=== PATIENT | female | born 1995 | race Caucasian/White ===

== ENCOUNTER → 2023-08-22 15:06 | Outpatient (BNVA) | payer BC, SELFPAY | PROVIDERS: Referring Provider Nurse Practitioner; Visit Provider Nurse Practitioner Women's Health | DX: Z30.9 Encounter for contraceptive management, unspecified (principal) | CPT/HCPCS: 81025 ==

== ENCOUNTER → 2024-06-02 15:44 | Outpatient (BNVA) | payer BC, SELFPAY | PROVIDERS: Visit Provider Nurse Practitioner Women's Health | DX: Z12.4 Encounter for screening for malignant neoplasm of cervix (principal) | CPT/HCPCS: 87624 ==

== ENCOUNTER → 2024-07-09 15:09 | Outpatient (BNVA) | payer BC, SELFPAY | PROVIDERS: Visit Provider Nurse Practitioner Women's Health | DX: N94.10 Unspecified dyspareunia (principal); Z98.890 Other specified postprocedural states; Z87.42 Personal history of other diseases of the female genital tract | CPT/HCPCS: 76830 ==

== ENCOUNTER 2025-01-28 15:42 | Outpatient (RCR) | payer BC, SELFPAY | END 2025-02-13 23:59 | disposition home or self-care (01) | LOC: SPT 15:42 | PROVIDERS: Visit Provider Obstetrics & Gynecology | DX: N94.10 Unspecified dyspareunia (principal) | CPT/HCPCS: 97110; 97161 ==

== ENCOUNTER 2025-02-14 05:00 | Outpatient (RCR) | payer BC, SELFPAY | END 2025-03-15 23:59 | disposition home or self-care (01) | LOC: SPT 05:00 | PROVIDERS: Visit Provider Obstetrics & Gynecology | DX: N94.10 Unspecified dyspareunia (principal); N39.3 Stress incontinence (female) (male) | CPT/HCPCS: 97110 ==

== ENCOUNTER 2025-03-16 05:00 | Outpatient (RCR) | payer BC, SELFPAY | END 2025-04-15 23:59 | disposition home or self-care (01) | LOC: SPT 05:00 | PROVIDERS: Visit Provider Obstetrics & Gynecology | DX: N94.10 Unspecified dyspareunia (principal); N39.3 Stress incontinence (female) (male) | CPT/HCPCS: 97110 ==

== ENCOUNTER → 2025-05-26 09:41 | Outpatient (BNVA) | payer BC, SELFPAY | PROVIDERS: Visit Provider Family Medicine | DX: Z01.818 Encounter for other preprocedural examination (principal) | CPT/HCPCS: 80053; 85007; 85027 ==

== ENCOUNTER 2025-06-01 09:12 | Inpatient (IN) | payer BC, SELFPAY ==
[2025-06-01] VITALS (16 sets, daily range): BP systolic 93–111; BP diastolic 49–75; PULSE 60–95; RESP 10–21; TEMP 36.2–36.9; O2SAT 93–99; BMI 30.2
--- NOTE | 2025-06-01 05:09 | W.PM.OPSFHP ---
Same Day Surgery H&P Indication for Procedure/HPI DATE OF PROCEDURE: June 01, 2025 CHIEF COMPLAINT/INDICATIONFOR SURGICAL PROCEDURE: painful intercourse PREOP DIAGNOSIS: dyspareunia PLANNED PROCEDURE: Operation Date: 06/01/25 07:00 Proposed Procedures p Laparoscopic Assist Vaginal Hysterectomy 35735 N94.10 R10.2 G89.29 N80.9(Not Applicable) - Low Swenson MD Medications/Allergies* Allergies/Adverse Reactions Allergy/AdvReac Type Severity Reaction Status Date / Time Cephalosporins Allergy Unknown ALGY-Rash Verified 05/26/25 09:31 iodine Allergy Unknown ALGY-Hives Verified 05/26/25 09:31 nickel Allergy Unknown ADR-Itching Verified 05/26/25 09:31 Penicillins Allergy Unknown ALGY-Rash Verified 05/26/25 09:31 Pertinent History/Comorbid Conditions* Family History (Updated 08/22/23 @ 14:19 by Shyla Key CMA) Breast cancer Grandmother Denies family history of Colon cancer Ovarian cancer Thyroid cancer Diabetes Heart disease Hyperlipidemia Hypertension Uterine cancer Stroke Social History Smoking and tobacco/nicotine status: never used tobacco/nicotine Pertinent Exam Findings alert, oriented x 3, clear to auscultation bilaterally and regular rate & rhythm Recommendations Surgery/Procedure today Coding Level of Care Code Acute Code for Chg Fwd
[2025-06-01 06:42] LABS: OR HCG Qualitative Urine Negative (Negative)
--- NOTE | 2025-06-01 06:43 | W.PM.OPSUD ---
Surgery/Procedure H&P Update DATE OF PROCEDURE: June 01, 2025 DATE H&P PERFORMED: 06/01/25 H&P UPDATE INFORMATION: I have reviewed H&P completed within last 30 days, I have examined patient prior to procedure and No changes to prior documentation PREOP DIAGNOSIS: dyspareunia PLANNED PROCEDURE: Operation Date: 06/01/25 07:00 Proposed Procedures p Laparoscopic Assist Vaginal Hysterectomy 25267 N94.10 R10.2 G89.29 N80.9(Not Applicable) - Low Swenson MD
--- NOTE | 2025-06-01 07:13 | ANES.PREANE2 ---
Pre-Anesthetic Assessment Height/Weight: Height 1.52 m Weight 70.307 kg O2 Del Method Room Air 06/01/25 06:12 Preop Diagnosis: dyspareunia Operation Date: 06/01/25 07:00 Proposed Procedures p Laparoscopic Assist Vaginal Hysterectomy 64887 N94.10 R10.2 G89.29 N80.9(Not Applicable) - Low Swenson MD Familial anesthetic complications: None Was Beta Aura taken within 24 hours: N/A Was Clonidine taken within 24 hours: N/A Last intake: Intake Last Liquid Date 05/31/25 Last Liquid Time 20:00 Last Solid Date 05/31/25 Last Solid Time 18:30 Social No alcohol and No tobacco Exam alert, oriented x 3, clear to auscultation bilaterally and regular rate & rhythm Airway Mallampati: Class II Anesthetic Plan ASA status: 1 Anesthesia: General Risk of > 500 ml blood loss (7ml/kg in children): No Medications/Allergies Home Medications ?Medication ?Instructions ?Recorded ?Confirmed ?Last Taken ?Type medroxyprogesterone 150 mg/mL 150 mg IM ONCE #1 mL 06/02/24 05/31/25 03/31/25 Rx intramuscular syringe (Depo-Provera) Allergies Allergy/AdvReac Type Severity Reaction Status Date / Time Cephalosporins Allergy Unknown ALGY-Rash Verified 05/26/25 09:31 iodine Allergy Unknown ALGY-Hives Verified 05/26/25 09:31 nickel Allergy Unknown ADR-Itching Verified 05/26/25 09:31 Penicillins Allergy Unknown ALGY-Rash Verified 05/26/25 09:31 Current Medications Generic Name Dose Route Start Last Admin Trade Name Edu PRN Reason Stop Dose Admin Sodium Chloride 1,000 mls @ 30 mls/hr 06/01/25 06:15 06/01/25 06:43 Sodium Chloride 0.9% IV 06/02/25 06:14 30 mls/hr .Q24H OFE Administration PFSH Anesthesia Family History Grandmother Breast cancer Denies family history of Colon cancer Ovarian cancer Thyroid cancer Diabetes Heart disease Hyperlipidemia Hypertension Uterine cancer Stroke Social History Smoking and tobacco/nicotine status: never used tobacco/nicotine
[2025-06-01] MEDS: metroNIDAZOLE IV 500 MG/100 ML PREMIX 100 MG IV (07:26)
[2025-06-01] MEDS: BUPivacaine 0.5% INJ 30 mL INJECTION (08:21)
[2025-06-01] MEDS: BUPivacaine liposome 13.3 mg/mL SDV 20 mL 266 MG INFILTRATI (08:21)
--- NOTE | 2025-06-01 09:13 | PM.OP2 ---
Brief Operative Note Date of procedure: 06/01/25 Pre-op diagnosis: dysmenorrhea Post-op diagnosis: same Procedure Done: total abdominal hysterectomy Surgeon: Low Swenson Estimated blood loss (mL): 20 Complications: none Post-op Plan: floor
--- NOTE | 2025-06-01 09:19 | SUR.OPER ---
pt arrived to OR with multiple blanchable red areas over bilateral arms and back. Pt stated she has had them for a week. Denied them itching or causing pain. Dr. Swenson made aware, assessed pt and proceeded with surgery.
[2025-06-01] MEDS: fentaNYL 50 mcg/mL INJ 2mL IVP (09:30)
--- NOTE | 2025-06-01 09:50 | ANE.PACU2 ---
Inpatient post-anesthesia follow up: Airway intact: Yes Vital signs: Temperature 97.6 F Pulse Rate 80 Respiratory Rate 17 Blood Pressure 100/63 Pulse Oximetry 97 Oxygen Delivery Me thod Room Air Oxygen Flow Rate Fraction of Inspir ed Oxygen Hydration adequate: Yes Nausea and vomiting: No Pain level: 1 Mental status: Baseline
--- NOTE | 2025-06-01 10:06 | PC.NURSE ---
0958 - accepted into room OB 12 with Savi RN at side - no distress noted to pt upon this nurse exiting care - BP 111/61 - pulse 84 - 02 96% - temp 97.6
[2025-06-01] MEDS: HYDROcodone-acetaminophen 5-325 mg Tablet PO ×2 (10:09→15:46)
--- NOTE | 2025-06-01 10:45 | PM.OP ---
Operative Report Date of procedure: June 01, 2025 Pre-op diagnosis: dyspareunia Post-op diagnosis: same Post-op findings: Normal uterus, tubes, and ovaries several scattered pigmented lesions in the posterior cul-de-sac peritoneum Normal and intact bladder Procedure done: Total abdominal hysterectomy Bilateral salpingectomy biopsy of posterior cul-de-sac lesion Implants: none Specimens removed/disposition: uterus / cervix fallopian tubes posterior cul-de-sac lesion Surgeon: Low Swenson MD Anesthesia: General Estimated blood loss (mL): 20 Complications: none Findings: see above Condition: stable Disposition: PACU Brief History: 30 y.o. with long history of painful intercourse, desires hysterectomy for treatment Procedure: It was originally planned to do laparoscopic hysterectomy. However, the Valerie-II device, an essential component of laparoscopic hysterectomy, was not able to be located prior to surgery. It was discussed with patient and she consented to proceed with abdominal hysterectomy. The patient was taken to the operating room and placed supine on the table. General endotracheal anesthesia was induced. The abdomen was prepped and draped in the usual sterile fashion. A velasco catheter was placed which drained clear urine. A pfannenstiel incision was made and carried down through skin and subcutaneous tissue and fascia. The fascia was sharply incised. The rectus muscles were and the abdomen was entered bluntly in the midline. The pelvic contents were visualized and examined. An Wili-O retractor was placed. The bowels were packed out of the way. The Ligasure device was used throughout for vessel sealing and cutting. The hysterectomy was begun by dividing and ligating the round ligaments bilaterally. The fallopian tubes were removed by clamping and ligating the mesosalpinx on each side. The ovaries were left intact. The vesicouterine peritoneal fold was incised in a transverse curvilinear fashion and sharply dissected downward mobilizing the bladder off the lower uterine segment. The uterine vessels were skeletonized and bilaterally divided and ligated. The procedure was carried down on both sides of the uterus until the cardinal uterosacral ligament was reached. The cervix was then incised. The vaginal cuff was identified and the mucosa was from the cervix. In this fashion, the uterus and tubes were removed leaving the vaginal cuff. The vaginal cuff was identified and the mucosa was sewn with O-Vicryl. There were several scattered small pigmented lesions located superficially on the posterior cul-de-sac peritoneum. One of these lesions was removed using Metzenbaum scissors and sent to pathology. No bleeding was seen. The pelvis was inspected and irrigated. There was no bleeding. The abdominal packs were removed as was the retractor. The fascia was then closed with a continuous stitch of O-Vicryl. The subcutaneous tissue was irrigated and inspected for hemostasis. Exparel 80 cc was given subcutaneously for postoperative pain relief. The skin was then reapproximated using Insorb absorbable subcuticular skin joon. The patient was then placed supine, extubated, and taken to the recovery room. Postoperative condition: stable EBL: 20 cc Complications: none Sponge, needle, instruments counts were correct x two.
[2025-06-01] MEDS: HYDROmorphone 0.5 MG/0.5 ML INJ 0.25 MG IVP ×2 (12:08→17:18)
[2025-06-01] MEDS: ondansetron 2 mg/ML SDV 2 mL 4 MG IVP ×2 (18:02→22:01)
--- NOTE | 2025-06-01 21:30 | PC.NURSE ---
Patient ambulated in halls 2 laps around OB unit with standby assist. Patient tolerated well, returned to room, patient brushed teeth and returned to bed without complaints.
[2025-06-02 03:15] VITALS: BP 99/59; PULSE 76; RESP 16; TEMP 36.9; O2SAT 95
--- OUTSIDE RECORDS SUMMARY | 2025-06-02 05:13 | XMS_ITS | Clinical Summary ---
Author Organization [facility] Address [address] Attn: Epic Prelude ADT REJI OCAMPO [address] Care Team Providers Care Capacity Planning Engineer Name Role Phone Dexter Farley MD Primary Care Provider [phone] Allergies Active Allergy Reactions Criticality Noted Date Comments Amoxicillin Unknown 03/21/2016 Cephalosporins Other (See Comments) Medium 07/31/2023 Childhood allergy Iodine Unknown 03/21/2016 Nickel Rash Low 02/04/2019 Penicillins Unknown 10/18/2017 Medications L-Norgest&E estradiol-E Estrad (Simpesse) 0.15 mg-30 mcg (84)/10 mcg (7) Tablet, Dose Pack, 3 MonthsIndications:E ncounter for prescription of oral contraceptives Take 1 Tablet by mouth daily. 91 Tablet 3 3 Active Active Problems Problem Noted Date Diagnosed Date Pain due to onychomycosis of toenails of both fe et 02/04/2019 Tinea pedis of both feet 02/04/2019 Immunizations Immunization Administration Dates Next Due Skin Test TB 04/26/2016 Family History Medical History Relation Name Comments Unknown Father Unknown Mother Breast Cancer Paternal Grandmother Relation Name Status Comments Father Alive Maternal Grandfather Mother Other Paternal Grandmother Social History Tobacco Use Types Packs/Day Years Used Date Smoking Tobacco: Never Passive Smoke Exposure: Never Smokeless Tobacco: Never Alcohol Use Standard Drinks/Week Comments Yes 0 (1 standard drink = 0.6 oz pur e alcohol) Comments Unknown Sex and Gender Information Value Date Recorded Sex Assigned at Not on file Legal Sex Female 2:44 AM ADJUSTMENT SUPERVISOR Gender Identity Not on file Sexual Orientation Not on file Last Filed Vital Signs Vital Sign Reading Time Taken Comments Blood Pressure 104/60 07/31/2023 9:31 AM ADJUSTMENT SUPERVISOR Pulse 87 07/31/2023 9:31 AM ADJUSTMENT SUPERVISOR Temperature 36.8 C (98.3 F) 07/31/2023 9:31 AM ADJUSTMENT SUPERVISOR Respiratory Rate 18 08/03/2022 3:48 PM ADJUSTMENT SUPERVISOR Oxygen Saturation 99% 07/31/2023 9:31 AM ADJUSTMENT SUPERVISOR Inhaled Oxygen Concentration - - Weight 65 kg (143 lb 6 oz) 07/31/2023 9:31 AM CS T Height 152.4 cm (5') 07/31/2023 9:31 AM ADJUSTMENT SUPERVISOR stat ed Body Mass Index 28 07/31/2023 9:31 AM ADJUSTMENT SUPERVISOR Plan of Treatment Health Maintenance Due Date Last Done Comments HEPATITIS B VACCINES (1 of 3 - 19+ 3-dose series) 02/04/2015 CERVICAL CANCER SCREENING 02/04/2022 PAP SMEAR 02/04/2022 02/04/2019 HPV VACCINES (1 - 3-dose SCDM series) 02/04/2023 HPV/Cotest (21-29) 2024 02/04/2019, 02/04/2019 Preventative Visit- Commercial 09/16/2024 02/04/2019 INFLUENZA VACCINE (#1) 2025 HPV/Cotest (30-65) 02/04/2026 02/04/2019, 02/04/2019 DTAP/TDAP/TD VACCINES (2 - Td or Tdap) 03/21/2031 Procedures Procedure Name Priority Date/Time Associated Diagnosis Comments HPV HIGH RISK DETECTION Routine 02/04/2019 9:21 AM CDT CERV/VAG CYTO SCREEN PAP RLFX HPV Routine 02/04/2019 9:21 AM CDT from Last 3 Months or Most Recently Relevant to Health Maintenance Results * (ABNORMAL) CERV/VAG CYTO SCREEN PAP RLFX HPV (02/04/2019 9:21 AM CDT) CLINICAL INFORMATION Information not provided 02/14/2019 1:18 PM CDT [facility] LAST MENSTRUAL PERIOD INFORMATION NOT PROVIDED 02/14/2019 1:18 PM CDT [facility] PREV PAP: INFORMATION NOT PROVIDED 02/14/2019 1:[address] [facility] PREV BX: INFORMATION NOT PROVIDED 02/14/2019 1:[address] [facility] SOURCE Endocervix 02/14/2019 1:18 PM CDT [facility] ADEQUACY: SEE COMMENT 02/14/2019 1:[address] [facility] Comment: Satisfactory for evaluation. Endocervical/transformation zone component present. Age and/or menstrual status not provided GENERAL CATEGORIZATION: EPITHELIAL CELL ABNORMALITY(A) 02/14/2019 1:[address] [facility] PAP INTERP Atypical Squamous Cells of Undetermined Significance (ASC-US)(A) 02/14/2019 1:[address] [facility] COMMENT SEE COMMENT 02/14/2019 1:18 PM CDT [facility] Comment: This Pap test has been evaluated with computer assisted technology. Suggest clinical correlation and follow-up as clinically appropriate COGENERATION OPERATOR: SEE COMMENT 2018 1:18 PM CDT [facility] Comment: MLO, CT(ASCP) CT screening location: [place] [address] Administration REJI Rodrigez [id number] PATHOLOGIST SEE COMMENT 02/14/2019 1:18 PM CDT [facility] Comment: Jose Savage M.D., Board Certified in Anatomic Pathology and Cytopathology. (electronic signature) EXPLANATORY NOTE SEE COMMENT 019 1:18 PM CDT [facility] Comment: EXPLANATORY NOTE: The Pap is a screening test for cervical cancer. It is not a diagnostic test and is subject to false negative and false positive results. It is most reliable when a satisfactory sample, regularly obtained, is submitted with relevant clinical findings and history, and when the Pap result is evaluated along with historic and current clinical information. Genital SWAB OF ENDOCERVIX / Unknown Collection / Unknown 02/04/2019 9:21 AM CDT 02/06/2019 7:11 AM CDT Narrative [facility] - 02/14/2019 1:18 PM CDT Performing Organization Information: Site ID: Name: [facility] Address: [facility] Administration REJI Akhtar [address] Director: Jesus Joseph Raina Sanches MD PATHOLOGY/CYTOLOGY OR DERABLES Final Result Performing Organization Address [facility] Co de Phone Number [facility] [phone] [facility] RE[facility]ENCE [facility] * HPV HIGH RISK DETECTION (02/04/2019 9:21 AM CDT) HPV E6/E7 Not Detected Not Detected 02/14/2019 1:[address] [facility] Comment: This test was performed using the APTIMA HPV Assay ([employer] This assay detects E6/E7 viral messenger RNA (mRNA) from 14 high-risk HPV types (16,18,31,33,35,39,45,51,52,56,58,59,66,68). The analytical performance characteristics of this assay have been determined by [employer] The modifications have not been cleared or approved by the FDA. This assay has been validated pursuant to the CLIA regulations and is used for clinical purposes. Genital SWAB OF ENDOCERVIX / Unknown Collection / Unknown 02/04/2019 9:21 AM CDT 02/06/2019 7:11 AM CDT Narrative [facility] - 02/14/2019 1:18 PM CDT Performing Organization Information: Site ID: [place] Name: [facility] Address: [address] [place] [id number] Director: Lj Conroy D.O., MPH us Raina Sanches MD PATHOLOGY/CYTOLOGY OR DERABLES Final Result Performing Organization Address City/[facility] Co de Phone Number [facility] [phone] [facility] from Last 3 Months or Most Recently Relevant to Health Maintenance Insurance [id number] [place] [address] [employer] BLUE ACCESS/TRUE [address]UE [address] [place] [address] Care Teams Capacity Planning Engineer Relationship Specialty Start Date End Date Dexter Farley MD [address] [id number] PCP - General Family Practice 08/03/22
[2025-06-02] MEDS: HYDROcodone-acetaminophen 5-325 mg Tablet PO ×2 (05:15→11:39)
[2025-06-02 05:18] LABS: Hematocrit 35.1 % (36-47); Hemoglobin 12.20 g/dL (11.27-16.99); Mean Corpuscular HGB Conc 34.8 g/dL (30-55); Mean Corpuscular Hemoglobin 31.7 pg (27-33); Mean Corpuscular Volume 91.2 fl (85-98); Platelet Count 247 10^3/cmm (157-399); Red Blood Count 3.85 10^6/uL (3.85-5.65); White Blood Count 12.11 10^3/uL (3.29-11.43)
--- NOTE | 2025-06-02 05:20 | PC.NURSE ---
Patient up to bathroom independently; teeth brushed. Cruz catheter removed intact while patient sitting on toilet; peripad and clean underwear applied. Patient ambulated in halls 2 laps around unit without difficulty. Returned to room, to bed without assistance.
[2025-06-02 09:10] VITALS: BP 101/66; PULSE 80; RESP 16; TEMP 36.8; O2SAT 96
[2025-06-02 11:45] VITALS: BP 101/66; PULSE 80; RESP 16; TEMP 36.8; O2SAT 96
--- NOTE | 2025-06-02 14:10 | PM.OBGYPN ---
RECREATION FACILITY ATTENDANT Subjective Subjective: Interval history: c/o moderate incisional pain, relieved with pain medications tolerating PO well voiding, ambulating well Vitals/I&O/Wt Last Vital Signs Temp 98.3 F 06/02/25 11:45 Pulse 80 06/02/25 11:45 Resp 16 06/02/25 11:45 BP 101/66 06/02/25 11:45 Pulse Ox 96 06/02/25 11:45 O2 Del Method Room Air 06/02/25 09:10 Physical Exam Narrative: VS afebrile, normal General comfortable, awake, alert Lungs: clear Cor: RRR Abd: soft, nondistended, nontender Wound clean and dry Ext: normal Postop Hgb 10.0 Urinary Catheter Management: Cruz Latex: Cath Placed During This Visit: yes, but has since been removed by the nurse Reason for Continuing Indwelling Catheter: Decision to DC Catheter Urinary Catheter Date of Insertion: 06/01/25 Date Urinary Catheter Removed: 06/02/25 Time Urinary Catheter Discontinued: 05:20 Data 06/02/25 05:05 A&P Assessment and plan 1. History of total abdominal hysterectomy: POD #1 total abdominal hysterectomy, bilateral salpingectomy Doing well Plan to discharge to home today Return to ER if fever, chills, nausea, vomiting, severe pain, vaginal bleeding, swelling or pain in legs, chest pain, shortness of breath Return to see me in one week PDMP PDMP Reviewed: Last Reviewed 06/02/25 12:05 EDT by Low Swenson MD Attestations Medical Necessity Statement*: patient s/p hysterectomy, plan to discharge to home today Coding Level of Care Code Acute Code for Chg Fwd Diagnoses History of total abdominal hysterectomy Z90.710
--- NOTE | 2025-06-02 15:20 | P.DS_ITS ---
Discharge Providers YARN SPOOLER Date of Admission: 06/01/25 09:12 Date of Discharge: 06/02/25 Attending Provider at Admission: Low Swenson MD Attending Provider at Discharge: Low Swenson MD Consults: none Primary YARN SPOOLER: Low Swenson MD Diagnoses at Discharge Discharge Diagnosis 1. History of total abdominal hysterectomy: Details from hospital stay: 30 y.o. with h/o dyspareunia admitted for hysterectomy patient underwent total abdominal hysterectomy and bilateral salpingectomy without any complications patient did well postoperatively and was discharged to home on the first postoperative day Reason for Visit Reason for Visit: N94.10 Brief History: 30 y.o. with h/o dyspareunia admitted for hysterectomy Hospital Course Hospital Course 30 y.o. with h/o dyspareunia admitted for hysterectomy patient underwent total abdominal hysterectomy and bilateral salpingectomy without any complications patient did well postoperatively and was discharged to home on the first postoperative day Physical Exam Narrative: VS afebrile, normal General comfortable, awake, alert Lungs: clear Cor: RRR Abd: soft, nondistended, nontender Wound clean and dry Ext: normal Postop Hgb 10.0 Urinary Catheter Management: Cruz Latex: Cath Placed During This Visit: yes, but has since been removed by the nurse Reason for Continuing Indwelling Catheter: Decision to DC Catheter Urinary Catheter Date of Insertion: 06/01/25 Date Urinary Catheter Removed: 06/02/25 Time Urinary Catheter Discontinued: 05:20 History History History 0 Term 0 0 Miscarriages/Ectopic 0 Living Children 0 Discharge Data Studies Completed and Pending Completed Studies During Hospitalization Category Date Time Status Pathology: Surgical [PTH] Routine Pth 06/01/25 09:16 Completed Laboratory Results WBC 12.11 10^3/uL (3.29-11.43) H 06/02/25 05:05 RBC 3.85 10^6/uL (3.85-5.65) 06/02/25 05:05 Hgb 12.20 g/dL (11.27-16.99) 06/02/25 05:05 Hct 35.1 % (36-47) L 06/02/25 05:05 MCV 91.2 fl (85-98) 06/02/25 05:05 MCH 31.7 pg (27-33) 06/02/25 05:05 MCHC 34.8 g/dL (30-55) 06/02/25 05:05 RDW 12.2 % (12.1-15.1) 06/02/25 05:05 Plt Count 247 10^3/cmm (157-399) 06/02/25 05:05 MPV 9.1 fL (7.4-10.4) 06/02/25 05:05 Urine HCG, Qual Negative (Negative) 06/01/25 06:40 Blood Type B Positive 06/01/25 06:30 Rho(D) Type Rh positive 06/01/25 06:30 Antibody Screen Negative 06/01/25 06:30 Procedures Performed Total abdominal hysterectomy Bilateral salpingectomy biopsy of posterior cul-de-sac lesion Vitals Last Vital Signs Temp 98.3 F 06/02/25 11:45 Pulse 80 06/02/25 11:45 Resp 16 06/02/25 11:45 BP 101/66 06/02/25 11:45 Pulse Ox 96 06/02/25 11:45 O2 Del Method Room Air 06/02/25 09:10 Results Labs OB ([facility]): Blood Type B Positive 06/01/25 Antibody Screen Negative 06/01/25 Hct, (36-47) 35.1 % L 06/02/25 Hgb, (11.27-16.99) 12.20 g/dL 06/02/25 Rho(D) Type Rh positive 06/01/25 Plt Count, (157-399) 247 10^3/cmm 06/02/25 Pap Smear Interpret See note 06/02/24 Discharge Plan Discharge Patient Disposition: Home Condition: Stable Prescriptions: No Action No Known Home Medications Discharge Order = DC NOW: Discharge Order (Routine); Ordered 06/02/25 Ordered By: Low Swenson Referrals: Low Swenson MD [Physician, YARN SPOOLER] - 06/07/25 1:45 pm Discharge Diet: Usual diet Discharge Activity: Increase activity as tolerated Patient Instructions: Acute Wound Care (DC), Hysterectomy (GEN), OB Abdominal Surgery - [facility], OB Discharge Report, OB Food/Drug Interaction Guide, Opioid Safety, Post Anesthesia Care, Patient Portal & [place] Instructions Discharge Attestations YARN SPOOLER Time Spent in Discharge Care*: less than 30 min Coding Level of Care Code Acute Code for Chg Fwd Diagnoses History of total abdominal hysterectomy Z90.710
== END 2025-06-02 12:15 | disposition home or self-care (01) | DRG 743 ==
LOC: OBGYN 12:55
PROVIDERS: Anesthesiology; Admitting Provider Obstetrics & Gynecology; Visit Provider Obstetrics & Gynecology
PROC: 0UT90ZZ Resection of Uterus, Open Approach (ICD-10-PCS; CPT 58150; 2025-06-01 07:00)
PROC: 0UT90ZZ Resection of Uterus, Open Approach (ICD-10-PCS; CPT 58700; 2025-06-01 07:00)
DX: N94.10 Unspecified dyspareunia (principal); K66.8 Other specified disorders of peritoneum
CPT/HCPCS: 36415; 81025; 85027; 86850; 86900; 88307; J0666; J1100; J1171; J1200; J1885; J2250; J2405; J2704; J3010; J3490; J7030; J7121; J9999

== ENCOUNTER → 2025-06-07 14:28 | Outpatient (BNVA) | payer BC, SELFPAY | PROVIDERS: Visit Provider Obstetrics & Gynecology | DX: R10.2 Pelvic and perineal pain (principal); G89.29 Other chronic pain | CPT/HCPCS: 84315 ==